=== PATIENT | female | born 1985 | race Caucasian/White ===

== ENCOUNTER 2016-12-02 12:04 | Emergency (ER) | payer MEDICAID ==
--- NOTE | 2016-12-02 12:36 | ED Physician Documentation ---
PD HPI NVD - Stated complaint Stated Complaint: VOMITING,DIARRHEA - Chief complaint Chief Complaint: Abd Pain - History obtained from History obtained from: Patient - History of Present Illness Timing - onset: Last night (she had some stomach nausea and diarrhea yesterday, and has been in [employer] race overnight, jogging almost 9 miles during the night and then slept very little. Was running again today. Had not had much to drink. Feeling generally weak. Having now vomiting and still with some diarrhea.) Timing - details: Gradual onset, Waxing and waning Associated symptoms: Abdominal pain (intermittent cramping), Near syncope / syncope (feeling very weak and lightheaded.). No: Fever, Chest pain, Hematemesis, Hematochezia Contributing factors: No: Sick contact, Bad food, Travel, Recent antibiotics, Alcohol use Improved by: No: Vomiting Worsened by: Eating Similar symptoms before: Has not had sx before Recently seen: Not recently seen Review of Systems Constitutional: reports: Myalgias, Fatigue. denies: Fever, Chills Nose: denies: Rhinorrhea / runny nose, Congestion Throat: denies: Sore throat Respiratory: denies: Cough GI: reports: Abdominal Pain (cramping intermittent), Nausea, Vomiting, Diarrhea. denies: Hematemesis, Bloody / black stool : reports: Missed period (LMP was in August). denies: Dysuria Skin: denies: Rash, Lesions Musculoskeletal: denies: Neck pain, Back pain PD PAST MEDICAL HISTORY - Past Medical History Past Medical History: No Cardiovascular: None Respiratory: None Neuro: None Endocrine/Autoimmune: None GI: None [employer] SPECIALIST: None : None HEENT: None Psych: Anxiety Musculoskeletal: None Derm: None - Past Surgical History Past Surgical History: Yes - Present Medications Home Medications: Ambulatory Orders Medication Instructions Recorded Confirmed Dicyclomine [Bentyl] 10 mg PO QID PRN #10 capsule 12/02/16 Diphenoxylate/Atropine [Lomotil] 1 each PO QID PRN #15 tablet 12/02/16 Promethazine [Phenergan] 25 mg PO Q6H PRN #15 tab 12/02/16 - Allergies Allergies/Adverse Reactions: Allergies Allergy/AdvReac Type Severity Reaction Status Date / Time No Known Drug Allergies Allergy Verified 12/02/16 12:11 - Living Situation Living Situation: reports: With spouse/s.o. Living Arrangement: reports: At home - Social History Does the pt smoke?: Yes Smoking Status: Current every day smoker Does the pt drink ETOH?: No Substance Use and Type: Marijuana - Immunizations Immunizations are current?: Yes PD ED PE NORMAL - Vitals Vital signs reviewed: Yes - General General: Alert and oriented X 3, Well developed/nourished, Other (nauseated with dry heaving; seems uncomfortable) - HEENT HEENT: PERRL (nonicteric) - Neck Neck: Supple, no meningeal sign, No adenopathy - Cardiac Cardiac: RRR, No murmur - Respiratory Respiratory: Clear bilaterally - Abdomen Abdomen: Soft, Non tender, Non distended, No organomegaly. No: Normal bowel sounds (diminished) - Back Back: No CVA TTP - Derm Derm: Warm and dry. No: Normal color (some pallor) - Extremities Extremities: Normal ROM s pain, No edema, No calf tenderness / cord - Neuro Neuro: Alert and oriented X 3, No motor deficit, Normal speech Results - Vitals Vitals: Oxygen O2 Source Room air - Labs Labs: Laboratory Tests 12/02/16 12/02/16 13:00 13:55 Sodium 138 Potassium 4.0 Chloride 101 Carbon Dioxide 26 Anion Gap 11.0 BUN 27 H Creatinine 1.0 Estimated GFR (MDRD) 64 L Glucose 104 H Calcium 9.6 Magnesium 1.9 Total Bilirubin 1.0 AST 95 H ALT 70 H Alkaline Phosphatase 60 Total Protein 7.3 Albumin 4.5 Globulin 2.8 Albumin/Globulin Ratio 1.6 Lipase 19 L Serum HCG, Qual NEGATIVE Urine Color YELLOW Urine Clarity CLEAR Urine pH 5.5 Ur Specific [place] 1.025 Urine Protein NEGATIVE Urine Glucose (UA) NEGATIVE Urine Ketones >=80 H Urine Occult Blood NEGATIVE Urine Nitrite NEGATIVE Urine Bilirubin NEGATIVE Urine Urobilinogen 0.2 (NORMAL) Ur Leukocyte Esterase NEGATIVE Ur Microscopic Review NOT INDICATED Urine Culture Comments NOT INDICATED PD MEDICAL DECISION MAKING - ED course Complexity details: reviewed results, re-evaluated patient (slow improvement with nausea and vomiting, that improved after several meds, though still some nausea. But is able to take some sips. I think it is comibnation of viral GE along with dehydration and fatigue of being running during night and up much of the night doing [employer] race. ), considered differential, d/w patient Departure - Departure Disposition: 01 Home, Self Care Clinical Impression: Nausea vomiting and diarrhea, Dehydration Condition: Stable Record reviewed to determine appropriate education?: Yes Instructions: ED Nausea Vomiting Prescriptions: Dicyclomine [Bentyl] 10 mg PO QID PRN #10 capsule PRN Reason: Spasms Diphenoxylate/Atropine [Lomotil] 1 each PO QID PRN #15 tablet PRN Reason: Diarrhea Promethazine [Phenergan] 25 mg PO Q6H PRN #15 tab PRN Reason: Nausea / Vomiting Comments: Small frequent fluids. Phenergan for nausea as needed. Lomotil for diarrhea as needed. Tylenol for pain and add dicyclomine as needed. Recheck if not better over the next day. At this point, presume a viral stomach virus along with dehydration and then effect of the running and fatigue from overnight/etc. I assume this will improve into tomorrow. Discharge Date/Time: 12/02/16 17:46
[2016-12-02] MEDS ORDERED: SODIUM CHLORIDE 0.9% 1,000 ML IV ONE ×3 (12:50→16:03)
[2016-12-02] MEDS ORDERED: ONDANSETRON 4 MG/2 ML VIAL IVP STA ×2 (12:50→17:17)
[2016-12-02] MEDS ORDERED: KETOROLAC 60 MG/2 ML VIAL IVP STA (12:50)
[2016-12-02] MEDS ORDERED: KETOROLAC 30 MG/ML VIAL ONE (13:07)
[2016-12-02] MEDS ORDERED: ONDANSETRON 4 MG/2 ML VIAL ONE ×2 (13:07→17:20)
[2016-12-02 13:43] LABS: ALBUMIN/GLOBULIN RATIO 1.6 (1.0-2.2); BUN - BLOOD UREA NITROGEN 27 mg/dL (6-20); CALCIUM 9.6 mg/dL (8.5-10.3); CARBON DIOXIDE - CO2 26 mmol/L (21-32); CHLORIDE 101 mmol/L (101-111); GFR - MDRD 64 (>89); GLUCOSE 104 mg/dL (70-100); LIPASE 19 U/L (22-51); MAGNESIUM 1.9 mg/dL (1.7-2.8); SODIUM 138 mmol/L (135-145); TOTAL PROTEIN 7.3 g/dL (6.7-8.2)
[2016-12-02] MEDS ORDERED: METOCLOPRAMIDE 10 MG/2 ML VIAL ONE ×2 (14:05→16:47)
[2016-12-02] MEDS ORDERED: METOCLOPRAMIDE 10 MG/2 ML VIAL IVP STA ×2 (14:10→16:03)
[2016-12-02 14:43] LABS: BILIRUBIN,URINE NEGATIVE (NEGATIVE); PH,URINE 5.5 PH (5.0-7.5)
[2016-12-02 14:56] LABS: UA CHARGE (STRIP ONLY) YES; UR CULTURE IF IND NOT INDICATED
[2016-12-02] MEDS ORDERED: FAMOTIDINE 20 MG/50 ML 50 ML IV ONE (16:03)
[2016-12-02] MEDS ORDERED: HYDROmorphone 1 MG/ML SYRINGE IVP STA (17:17)
[2016-12-02] MEDS ORDERED: HYDROmorphone 1 MG/ML SYRINGE ONE (17:20)
[2016-12-02 17:44] VITALS: BP 114/75
== END 2016-12-02 17:46 | disposition home or self-care (01) ==
LOC: ED 12:04
DX: R11.2 Nausea with vomiting, unspecified (principal); R19.7 Diarrhea, unspecified; E86.0 Dehydration; F17.200 Nicotine dependence, unspecified, uncomplicated
CPT/HCPCS: 36415; 80053; 81003; 83690; 83735; 84703; 96374; 96375; 96376; 99283; 99284; J1170; 81001; 87086